=== PATIENT | female | born 1985 | race African-American/Black ===

== ENCOUNTER 2019-01-08 04:19 | Emergency (ER) | payer MEDICAID ==
[~2019-01-08] VITALS: Ht 157.5 cm; Wt 64.0 kg
[2019-01-08] MEDS ORDERED: HYDROCODONE/ACETAMINOPHEN 5/325MG TABLET PO ONE (09:15)
[2019-01-08] MEDS ORDERED: TETANUS, DIPHTHERIA, PERTUSSIS VAC/PF 0.5ML (>7YR OLD) IM ONE (09:30)
[2019-01-08] MEDS ORDERED: LIDOCAINE HCL/EPINEPHRINE 1%-EPI 1:100,000 20 ML VIAL INFIL ONE (09:30)
[2019-01-08 13:20] VITALS: BP 135/89
[2019-01-08] MEDS ORDERED: ACETAMINOPHEN 325MG TABLET PO ONE (13:30)
== END 2019-01-08 13:35 | disposition home or self-care (01) ==
LOC: ER 04:19
DX: S01.511A Laceration without foreign body of lip, initial encounter (principal); S00.83XA Contusion of other part of head, initial encounter; M79.642 Pain in left hand; M25.532 Pain in left wrist; I10 Essential (primary) hypertension; F17.200 Nicotine dependence, unspecified, uncomplicated; Y08.89XA Assault by other specified means, initial encounter; Y93.89 Activity, other specified; Y92.89 Other specified places as the place of occurrence of the external cause; Y99.8 Other external cause status
CPT/HCPCS: 12011; 70450; 70486; 72125; 73110; 73130; 99284; J3490

== ENCOUNTER 2019-03-16 01:51 | Emergency (ER) | payer MEDICAID ==
[~2019-03-16] VITALS: Ht 165.1 cm; Wt 66.0 kg
[2019-03-16] MEDS ORDERED: ACETAMINOPHEN 325MG TABLET PO PRN (03:00)
[2019-03-16 03:40] LABS: CLARITY URINE CLOUDY (CLEAR); COLOR URINE YELLOW (YELLOW); KETONES URINE 2+ (NEGATIVE); LEUKOCYTE ESTERASE URINE 2+ (NEGATIVE); NITRITE URINE NEGATIVE (NEGATIVE); OCCULT BLOOD URINE NEGATIVE (NEGATIVE); PROTEIN URINE NEGATIVE (NEGATIVE); SPECIFIC GRAVITY URINE 1.009 (1.005-1.030); UROBILINOGEN URINE 0.2 E.U./dL (0.2-1.0)
[2019-03-16 03:42] LABS: BASOPHILS % 0.7 % (0.0-2.0); EOSINOPHILS % 5.2 % (0.0-5.0); HEMATOCRIT. 34.4 % (36.0-48.0); HEMOGLOBIN. 11.3 g/dL (12.0-16.0); LYMPHOCYTES % 19.5 % (20.0-50.0); MEAN CORPUSCULAR HEMOGLOBIN 27.5 pg (28.0-32.0); MEAN CORPUSCULAR VOLUME 83.9 fL (81.0-99.0); MEAN PLATELET VOLUME 7.1 fl (7.4-10.4); MONOCYTES % 3.9 % (2.0-8.0); NEUTROPHILS % 70.7 % (40.0-76.0); PLATELET 407 x1000/uL (130-400); RED CELL DISTRIBUTION WIDTH 19.7 % (11.6-14.6)
[2019-03-16 03:44] LABS: CHLORIDE 107 mEq/L (98-107)
[2019-03-16 04:09] LABS: B-HCG QUANTITATIVE 31705 mIU/mL (<3)
[2019-03-16 05:08] VITALS: BP 117/75
== END 2019-03-16 05:23 | disposition home or self-care (01) ==
LOC: ER 01:51
DX: O26.891 Other specified pregnancy related conditions, first trimester (principal); O23.41 Unspecified infection of urinary tract in pregnancy, first trimester; R10.9 Unspecified abdominal pain; Z3A.13 13 weeks gestation of pregnancy
CPT/HCPCS: 36415; 76801; 81003; 84702; 86850; 86900; 87077; 87186; 99284

== ENCOUNTER 2019-08-22 15:40 | Emergency (ER) | payer MEDICAID ==
[~2019-08-22] VITALS: Ht 154.9 cm; Wt 84.0 kg
[2019-08-22] MEDS ORDERED: ACETAMINOPHEN 325MG TABLET PO STA (16:53)
[2019-08-22 17:16] LABS: BASOPHILS % 0.1 % (0.0-2.0); EOSINOPHILS % 4.6 % (0.0-5.0); HEMOGLOBIN. 8.3 g/dL (12.0-16.0); LYMPHOCYTES % 20.7 % (20.0-50.0); MEAN CORPUSCULAR VOLUME 84.3 fL (81.0-99.0); MEAN PLATELET VOLUME 7.1 fl (7.4-10.4); MONOCYTES % 6.5 % (2.0-8.0); NEUTROPHILS % 68.1 % (40.0-76.0); PLATELET 353 x1000/uL (130-400); RED BLOOD CELL COUNT 2.97 mill/uL (4.2-5.4); RED CELL DISTRIBUTION WIDTH 17.6 % (11.6-14.6)
[2019-08-22 17:21] LABS: INR 0.9
[2019-08-22 17:22] LABS: CHLORIDE 106 mEq/L (98-107)
[2019-08-22 17:26] LABS: ETHANOL BLOOD < 10 mg/dL
[2019-08-22 17:40] LABS: CLARITY URINE CLOUDY (CLEAR); COLOR URINE YELLOW (YELLOW); KETONES URINE NEGATIVE (NEGATIVE); LEUKOCYTE ESTERASE URINE 2+ (NEGATIVE); NITRITE URINE NEGATIVE (NEGATIVE); OCCULT BLOOD URINE NEGATIVE (NEGATIVE); PROTEIN URINE NEGATIVE (NEGATIVE); SPECIFIC GRAVITY URINE 1.017 (1.005-1.030)
[2019-08-22 17:45] LABS: B-HCG QUANTITATIVE 11265 mIU/mL (<3)
[2019-08-22 17:56] LABS: *AMPHETAMINES SCREEN URINE NEGATIVE (NEGATIVE); *BARBITURATES SCREEN URINE NEGATIVE (NEGATIVE); CANNABINOID URINE SCREEN NEGATIVE (NEGATIVE); PHENCYCLIDINE URINE SCREEN NEGATIVE (NEGATIVE)
[2019-08-22 17:57] LABS: *BENZODIAZEPINES SCREEN URINE NEGATIVE (NEGATIVE); *COCAINE SCREEN URINE NEGATIVE (NEGATIVE); METHADONE URINE SCREEN NEGATIVE (NEGATIVE)
[2019-08-22 18:12] LABS: OPIATES URINE SCREEN PRESUMTIVE POSITIVE (NEGATIVE)
[2019-08-22] MEDS: NITROFURANTOIN 100MG M/M CAPSULE PO SCH (22:06)
[2019-08-23] MEDS: NITROFURANTOIN 100MG M/M CAPSULE PO SCH (09:00)
[2019-08-23 10:40] VITALS: BP 142/82
== END 2019-08-23 10:50 | disposition home or self-care (01) ==
LOC: ER 15:40
DX: O23.13 Infections of bladder in pregnancy, third trimester (principal); Z3A.32 32 weeks gestation of pregnancy; Z59.0 Homelessness
CPT/HCPCS: 36415; 76815; 80053; 80305; 80307; 80320; 80329; 81003; 84702; 85025; 86850; 86900; 99285; G0480